=== PATIENT | male | born 1955 | race African-American/Black ===

== ENCOUNTER 2016-07-11 17:46 | Emergency (ER) | payer MEDICAID ==
[~2016-07-11] VITALS: Ht 180.3 cm; Wt 65.0 kg
[~2016-07-11 17:46] MED LIST: ACET-2178 PO; AMLO5TAB88 PO; CALC667C4 PO; DIPH1TAB PO; FOLI1TAB87 PO; Isosorb Dinit/Hydralazine Hcl PO; LISI-604 PO; LOPE2TAB26 PO; Lisinopril PO; SEVE800T8 PO; SODI650T PO; ZOLP5TAB8 PO; [UNRECOGNIZED DRUG - CODE] PO
[2016-07-11] MEDS ORDERED: MORPHINE SULFATE 4 MG/ML CPJ (NOT FOR IM USE) IV STA (18:02)
[2016-07-11] MEDS ORDERED: ONDANSETRON HCL 4MG/2ML VIAL IV STA (18:02)
[2016-07-11 18:32] LABS: BASOPHILS % 0.9 % (0.0-2.0); EOSINOPHILS % 0.9 % (0.0-5.0); HEMATOCRIT. 42.8 % (42.0-52.0); LYMPHOCYTES % 41.8 % (20.0-50.0); MEAN CORPUSCULAR HEMOGLOBIN 29.1 pg (28.0-32.0); MEAN CORPUSCULAR HGB CONC 32.8 g/dL (31.0-37.0); MEAN CORPUSCULAR VOLUME 88.8 fL (80.0-94.0); MONOCYTES % 4.9 % (2.0-8.0); NEUTROPHILS % 51.5 % (40.0-76.0); PLATELET 129 x1000/uL (130-400); RED BLOOD CELL COUNT 4.82 mill/uL (4.7-6.1); RED CELL DISTRIBUTION WIDTH 17.1 % (11.6-14.6); WHITE BLOOD COUNT 7.3 x1000/uL (4.5-11.0)
[2016-07-11 18:37] LABS: INR 1.1; PROTHROMBIN TIME 11.2 sec
[2016-07-11 18:44] LABS: ALANINE AMINOTRANSFERASE 22 IU/L (13-61); ALBUMIN 4.1 g/dL (3.4-5.0); ANION GAP 15; CALCIUM 9.1 mg/dL (8.5-10.1); CARBON DIOXIDE 26 mEq/L (21-32); CHLORIDE 101 mEq/L (98-107); INDEX HEMOLYSI 2 (1-3); INDEX ICTERIC 1 (1-4); INDEX LIPEMIC 1 (1-3); LIPASE 296 IU/L (73-393); UREA NITROGEN BLOOD 16 mg/dL (7-21); eGFR 8 mL/min (>60)
[2016-07-11] MEDS ORDERED: MORPHINE SULFATE 2 MG/ML CPJ (NOT FOR IM USE) IV ONE (23:30)
[2016-07-11 23:33] VITALS: BP 165/106
== END 2016-07-12 00:51 | disposition home or self-care (01) ==
LOC: ER 17:47
DX: R10.9 Unspecified abdominal pain (principal); I10 Essential (primary) hypertension; M19.90 Unspecified osteoarthritis, unspecified site; F17.200 Nicotine dependence, unspecified, uncomplicated; Z93.3 Colostomy status; Z99.2 Dependence on renal dialysis; Z85.048 Personal history of other malignant neoplasm of rectum, rectosigmoid junction, and anus
CPT/HCPCS: 36415; 74176; 80053; 83690; 85025; 85610; 96374; 96375; 96376; 99285; J2270; J2405; Z7610

== ENCOUNTER 2017-01-31 05:08 | Inpatient (IN) | payer OTHER ==
[~2017-01-31] VITALS: Ht 180.3 cm; Wt 54.4 kg
[~2017-01-31 05:08] MED LIST changes: -ACET-2178 PO; +CEPH500C2 PO; +CLON0.2T PO; +IBUP-2028 PO; +METO25TA6 PO; -[UNRECOGNIZED DRUG - CODE] PO
[2017-01-31] MEDS ORDERED: ONDANSETRON HCL 4MG/2ML VIAL IV STA (06:07)
[2017-01-31] MEDS ORDERED: MORPHINE SULFATE 4 MG/ML CPJ (NOT FOR IM USE) IV STA (06:07)
[2017-01-31 06:40] LABS: HEMATOCRIT. 37.9 % (42.0-52.0); HEMOGLOBIN. 12.4 g/dL (14.0-18.0); MEAN CORPUSCULAR HEMOGLOBIN 30.5 pg (28.0-32.0); MEAN CORPUSCULAR VOLUME 93.2 fL (80.0-94.0); RED BLOOD CELL COUNT 4.07 mill/uL (4.7-6.1); RED CELL DISTRIBUTION WIDTH 15.5 % (11.6-14.6)
[2017-01-31 06:50] LABS: INR 1.3; PROTHROMBIN TIME 13.6 sec (9.4-11.6)
[2017-01-31 06:55] LABS: CARBON DIOXIDE 25 mEq/L (21-32); CHLORIDE 106 mEq/L (98-107)
[2017-01-31] MEDS ORDERED: SODIUM POLYSTYRENE SULFONATE 15 G/60 ML BOT PO ONE (07:15)
[2017-01-31] MEDS ORDERED: IOHEXOL-350 100 ML BOTTLE ONE (07:26)
[2017-01-31 08:01] LABS: PLATELET ESTIMATE NORMAL
[2017-01-31 08:03] LABS: PLATELET 96 x1000/uL (130-400)
[2017-01-31] MEDS ORDERED: ONDANSETRON HCL 4MG/2ML VIAL IV ONE (10:00)
[2017-01-31] MEDS ORDERED: MORPHINE SULFATE 4 MG/ML CPJ (NOT FOR IM USE) IV ONE (10:00)
[2017-01-31] MEDS: MORPHINE SULFATE 4 MG/ML CPJ (NOT FOR IM USE) IV PRN ×3 (12:02→20:40)
[2017-01-31] MEDS ORDERED: CLONIDINE 0.1MG TABLET PO PRN (12:30)
[2017-01-31] MEDS ORDERED: ACETAMINOPHEN 325MG TABLET PO PRN (12:30)
[2017-01-31] MEDS ORDERED: IPRATROPIUM/ALBUTEROL 0.5-3(2.5)MG/3ML NEB INH PRN (12:30)
[2017-01-31] MEDS ORDERED: HYDROCODONE/ACETAMINOPHEN 5/325MG TABLET PO PRN (12:30)
[2017-01-31] MEDS ORDERED: DOCUSATE SODIUM 100MG CAPSULE PO PRN (12:30)
[2017-01-31] MEDS ORDERED: ONDANSETRON HCL 4MG/2ML VIAL IV PRN (12:30)
[2017-01-31] MEDS ORDERED: MAGNESIUM/ALUMINUM HYDROXIDE/SIMETHICONE 30ML UDC PO PRN (12:30)
[2017-01-31 13:00] VITALS: BP 153/74
[2017-01-31] MEDS ORDERED: NIFE90TA34 PO (15:07)
[2017-01-31] MEDS ORDERED: SODIUM POLYSTYRENE SULFONATE 15 G/60 ML BOT PO NR (15:15)
[2017-01-31] MEDS ORDERED: PANT40TA4 PO (15:17)
[2017-01-31] MEDS ORDERED: ATOR20TA65 PO (15:17)
[2017-01-31] MEDS ORDERED: CLOP75TA33 PO (15:17)
[2017-01-31] MEDS ORDERED: GABA-529 PO (15:17)
[2017-01-31] MEDS ORDERED: ISOS30TA6 PO (15:17)
[2017-01-31 16:21] LABS: CREATINE KINASE MB FRACTION 1.1 ng/mL (0.5-3.6); TROPONIN I 0.16 ng/mL (0.00-0.04)
[2017-01-31 20:30] VITALS: BP 192/94
[2017-01-31] MEDS ORDERED: ZOLPIDEM TARTRATE 5MG TABLET PO PRN (21:30)
[2017-01-31] MEDS ORDERED: LOPERAMIDE HCL 2 MG PO PRN (21:30)
[2017-01-31] MEDS ORDERED: DIPHENOXYLATE/ATROPINE 2.5/0.025MG TABLET PO PRN (21:30)
[2017-01-31 21:40] VITALS: BP 170/82
[2017-01-31] MEDS ORDERED: IBUPROFEN 400MG TABLET PO PRN (21:51)
[2017-01-31] MEDS ORDERED: LOPERAMIDE HCL 2MG CAPSULE PO PRN (21:56)
[2017-01-31] MEDS: ATORVASTATIN CALCIUM 20MG TABLET PO SCH (21:56)
[2017-01-31] MEDS: AMLODIPINE 5MG TABLET PO SCH (21:56)
[2017-01-31] MEDS: GABAPENTIN 100MG CAPSULE PO SCH (21:56)
[2017-01-31] MEDS: METOPROLOL TARTRATE 25MG TABLET PO SCH (21:56)
[2017-02-01] VITALS (7 sets, daily range): BP systolic 105–154; BP diastolic 54–75
[2017-02-01] MEDS: MORPHINE SULFATE 4 MG/ML CPJ (NOT FOR IM USE) IV PRN ×5 (00:47→18:12)
[2017-02-01 01:15] LABS: CREATINE KINASE MB FRACTION 1.4 ng/mL (0.5-3.6); TROPONIN I 0.15 ng/mL (0.00-0.04)
[2017-02-01] MEDS: PANTOPRAZOLE 40MG DR TABLET PO SCH (06:19)
[2017-02-01] MEDS ORDERED: CALCIUM ACETATE 667MG CAPSULE PO NR (07:50)
[2017-02-01] MEDS ORDERED: SEVELAMER CARBONATE 800 MG TABLET PO SCH (07:50)
[2017-02-01 08:02] LABS: BASOPHILS % 1.3 % (0.0-2.0); EOSINOPHILS % 5.3 % (0.0-5.0); HEMOGLOBIN. 10.8 g/dL (14.0-18.0); MEAN CORPUSCULAR HEMOGLOBIN 30.4 pg (28.0-32.0); MEAN CORPUSCULAR VOLUME 92.6 fL (80.0-94.0); MEAN PLATELET VOLUME 8.5 fl (7.4-10.4); MONOCYTES % 10.9 % (2.0-8.0); NEUTROPHILS % 37.5 % (40.0-76.0); PLATELET 130 x1000/uL (130-400); RED BLOOD CELL COUNT 3.56 mill/uL (4.7-6.1); RED CELL DISTRIBUTION WIDTH 15.5 % (11.6-14.6)
[2017-02-01 08:40] LABS: CREATINE KINASE MB FRACTION 1.2 ng/mL (0.5-3.6); TROPONIN I 0.14 ng/mL (0.00-0.04)
[2017-02-01] MEDS: METOPROLOL TARTRATE 25MG TABLET PO SCH ×2 (09:00→21:00)
[2017-02-01] MEDS ORDERED: MEDICATION NOT ON FORMULARY EA (Folic Acid/Vitamin B Comp W-C (Rena-Vite Rx Tablet) 1 MG PO SCH (09:00)
[2017-02-01] MEDS: CLONIDINE 0.2MG TABLET PO SCH ×2 (09:00→21:00)
[2017-02-01] MEDS: LISINOPRIL 20MG TABLET PO SCH (09:00)
[2017-02-01] MEDS: GABAPENTIN 100MG CAPSULE PO SCH ×3 (09:53→18:10)
[2017-02-01] MEDS: ATORVASTATIN CALCIUM 20MG TABLET PO SCH (09:54)
[2017-02-01] MEDS: AMLODIPINE 5MG TABLET PO SCH (09:54)
[2017-02-01] MEDS: FOLIC ACID/VITAMIN B COMP W-C TABLET PO SCH (09:54)
[2017-02-01] MEDS: CLOPIDOGREL 75MG TABLET PO SCH (09:55)
[2017-02-01] MEDS: ISOSORBIDE MONONITRATE 30MG TABLET SR 24HR PO SCH (09:56)
[2017-02-01] MEDS: CALCIUM ACETATE 667MG CAPSULE PO SCH ×2 (12:50→18:10)
[2017-02-01] MEDS ORDERED: DIPHENHYDRAMINE 50MG/ML VIAL IM PRN (13:45)
[2017-02-01] MEDS ORDERED: ZOSYN IVPB XX SCH (13:45)
[2017-02-01] MEDS ORDERED: IBUPROFEN 600MG TABLET PO PRN (14:00)
[2017-02-01] MEDS: PIPERACILLIN/TAZ 2.25G PREMIX 50 ML IV SCH (18:10)
[2017-02-02] VITALS: BP 131/70
[2017-02-02] MEDS: PIPERACILLIN/TAZ 2.25G PREMIX 50 ML IV SCH ×2 (00:41→09:19)
[2017-02-02] MEDS: MORPHINE SULFATE 4 MG/ML CPJ (NOT FOR IM USE) IV PRN ×2 (00:43→05:33)
[2017-02-02 04:00] VITALS: BP 130/73
[2017-02-02] MEDS: PANTOPRAZOLE 40MG DR TABLET PO SCH (05:33)
[2017-02-02 05:39] LABS: BASOPHILS % 1.7 % (0.0-2.0); EOSINOPHILS % 5.1 % (0.0-5.0); HEMATOCRIT. 32.5 % (42.0-52.0); HEMOGLOBIN. 10.5 g/dL (14.0-18.0); LYMPHOCYTES % 43.5 % (20.0-50.0); MEAN CORPUSCULAR HEMOGLOBIN 29.8 pg (28.0-32.0); MEAN CORPUSCULAR VOLUME 92.4 fL (80.0-94.0); MONOCYTES % 10.8 % (2.0-8.0); NEUTROPHILS % 38.9 % (40.0-76.0); PLATELET 159 x1000/uL (130-400); RED BLOOD CELL COUNT 3.52 mill/uL (4.7-6.1); RED CELL DISTRIBUTION WIDTH 15.3 % (11.6-14.6)
[2017-02-02 08:00] VITALS: BP 108/62
[2017-02-02] MEDS ORDERED: NIFEDIPINE XL 90MG TAB PO SCH (09:00)
[2017-02-02] MEDS: CLONIDINE 0.2MG TABLET PO SCH (09:00)
[2017-02-02] MEDS: METOPROLOL TARTRATE 25MG TABLET PO SCH (09:00)
[2017-02-02] MEDS: ISOSORBIDE MONONITRATE 30MG TABLET SR 24HR PO SCH (09:00)
[2017-02-02] MEDS: LISINOPRIL 20MG TABLET PO SCH (09:00)
[2017-02-02] MEDS: CLOPIDOGREL 75MG TABLET PO SCH (09:20)
[2017-02-02] MEDS: CALCIUM ACETATE 667MG CAPSULE PO SCH (09:20)
[2017-02-02] MEDS: FOLIC ACID/VITAMIN B COMP W-C TABLET PO SCH (09:20)
[2017-02-02] MEDS: GABAPENTIN 100MG CAPSULE PO SCH (09:20)
[2017-02-02 14:06] VITALS: BP 109/63
[2017-02-02] MEDS ORDERED: ATORVASTATIN CALCIUM 20MG TABLET PO SCH (21:00)
== END 2017-02-02 15:20 | disposition home or self-care (01) | DRG 251 ==
LOC: ER 05:08 → ENRESERV 08:40 → 6EST 10:05 → EDBEDREQ 10:08 → EDBEDREQTM 10:08 → ER 11:17 → 6WST 20:19
PROVIDERS: ADMIT Internal Medicine; ATTEND Internal Medicine
PROC: 5A1D70Z Performance of Urinary Filtration, Intermittent, Less than 6 Hours Per Day (ICD-10-PCS; principal; 2017-02-02)
DX: R10.9 Unspecified abdominal pain (principal); I95.9 Hypotension, unspecified; N18.6 End stage renal disease; I12.0 Hypertensive chronic kidney disease with stage 5 chronic kidney disease or end stage renal disease; E83.39 Other disorders of phosphorus metabolism; L02.215 Cutaneous abscess of perineum; D63.1 Anemia in chronic kidney disease; F17.210 Nicotine dependence, cigarettes, uncomplicated; G47.00 Insomnia, unspecified; I73.9 Peripheral vascular disease, unspecified; M19.90 Unspecified osteoarthritis, unspecified site; Z53.21 Procedure and treatment not carried out due to patient leaving prior to being seen by health care provider; Z79.899 Other long term (current) drug therapy; Z85.048 Personal history of other malignant neoplasm of rectum, rectosigmoid junction, and anus; Z90.49 Acquired absence of other specified parts of digestive tract; Z99.2 Dependence on renal dialysis; Z91.19 Patient's noncompliance with other medical treatment and regimen; Z93.3 Colostomy status; Z91.018 Allergy to other foods
CPT/HCPCS: 36415; 74176; 74177; 80048; 80053; 82550; 82553; 83605; 83690; 84484; 85025; 85610; 87040; 93005; 93970; 96374; 96375; 96376; 99285; 99406; C1893; J1200; J2270; J2405; J2543; J7030; J7050; Q9967

== ENCOUNTER 2017-03-04 16:57 | Emergency (ER) | payer OTHER ==
[~2017-03-04] VITALS: Ht 180.3 cm; Wt 54.0 kg
[~2017-03-04 16:57] MED LIST changes: +ATOR20TA65 PO; +CLOP75TA33 PO; +GABA-529 PO; +ISOS30TA6 PO; +NIFE90TA34 PO; +PANT40TA4 PO
[2017-03-04 18:29] LABS: EOSINOPHILS % 3.2 % (0.0-5.0); HEMATOCRIT. 33.8 % (42.0-52.0); HEMOGLOBIN. 10.8 g/dL (14.0-18.0); LYMPHOCYTES % 30.8 % (20.0-50.0); MEAN CORPUSCULAR HEMOGLOBIN 29.4 pg (28.0-32.0); MEAN CORPUSCULAR VOLUME 91.9 fL (80.0-94.0); MEAN PLATELET VOLUME 7.9 fl (7.4-10.4); MONOCYTES % 11.7 % (2.0-8.0); NEUTROPHILS % 52.3 % (40.0-76.0); PLATELET 216 x1000/uL (130-400); RED BLOOD CELL COUNT 3.68 mill/uL (4.7-6.1); RED CELL DISTRIBUTION WIDTH 18.6 % (11.6-14.6)
[2017-03-04 18:31] LABS: CHLORIDE 103 mEq/L (98-107)
[2017-03-04 18:32] LABS: INR 1.2; PARTIAL THROMBOPLASTIN TIME 29.5 sec (23.4-31.0); PROTHROMBIN TIME 12.8 sec (9.4-11.6)
[2017-03-04 18:33] LABS: CARBON DIOXIDE 26 mEq/L (21-32)
[2017-03-04 18:38] LABS: PHOSPHORUS 5.3 mg/dL (2.5-4.9)
[2017-03-04] MEDS ORDERED: MAGNESIUM/ALUMINUM HYDROXIDE/SIMETHICONE 30ML UDC PO ONE (19:00)
[2017-03-04 21:48] VITALS: BP 144/79
== END 2017-03-04 21:51 | disposition home or self-care (01) ==
LOC: ER 16:57
DX: R10.13 Epigastric pain (principal); I12.0 Hypertensive chronic kidney disease with stage 5 chronic kidney disease or end stage renal disease; N18.6 End stage renal disease; M19.90 Unspecified osteoarthritis, unspecified site; Z99.2 Dependence on renal dialysis; Z85.9 Personal history of malignant neoplasm, unspecified; Z93.3 Colostomy status; Z91.018 Allergy to other foods
CPT/HCPCS: 36415; 74022; 80053; 83690; 83735; 84100; 85025; 85610; 85730; 99285